=== PATIENT | female | born 1990 | race Caucasian/White ===

== ENCOUNTER 2019-08-31 06:07 | Inpatient (IN) ==
[2019-08-31] MEDS ORDERED: ONDANSETRON 4 MG/2 ML VIAL IV PRN (06:18)
[2019-08-31] MEDS ORDERED: BUTORPHANOL 2 MG/ML VIAL IV PRN (06:18)
[2019-08-31] MEDS ORDERED: MEPERIDINE 50 MG/1 ML VIAL IV PRN (06:18)
[2019-08-31] MEDS ORDERED: LACTATED RINGERS 1,000 ML IV SCH (06:30)
[2019-08-31 06:43] LABS: Basophils % 0.3 % (0.0-0.8); Eosinophils # 0.1 10*3/uL (0.0-0.87); Eosinophils % 0.6 % (0.00-10.9); Hematocrit 35.6 VOL% (35.7-47.0); Hemoglobin 11.9 GM/DL (12.0-16.0); Immature Granulocytes % 1.3 %; Immature Granulocytes Absolute 0.15 #; Lymphocytes % 25.7 % (21.3-54.2); Mean Corpuscular HGB Conc 33.4 GM/DL (32-36); Mean Corpuscular Volume 96.2 FL (87-102); Mean Platelet Volume 12.3 FL (9.6-12.0); Monocytes % 8.2 % (1.7-12.7); Neutrophils % 63.9 % (38.7-73.9); Platelet Count 186 T/CUMM (130-400); Red Cell Distribution Width 13.1 % (9.3-17.3); White Blood Count 11.6 T/CUMM (4-12)
[2019-08-31 07:02] LABS: Alanine Aminotransferase 12 U/L (13-56); Albumin 2.6 G/DL (3.4-5.0); Alkaline Phosphatase 130 U/L (45-117); Aspartate Amino Transferase 14 U/L (0-37); Bilirubin,Total < 0.39 MG/DL (0.2-1.0); Blood Urea Nitrogen 4 MG/DL (7-18); Calcium 9.3 MG/DL (8.5-10.1); Estimated Glom Filtration Rate 139 ML/MIN; Glucose 94 MG/DL (74-106); Osmolality,Calculated 271.7 MOS/KG (273-304); Total Protein 6.9 G/DL (6.4-8.3)
[2019-08-31] MEDS: OXYTOCIN/LR 20 UNIT/1,000 ML BAG IV SCH ×2 (07:05→16:59)
[2019-08-31] MEDS ORDERED: LACTATED RINGERS 1,000 ML IV ONE (08:39)
[2019-08-31] MEDS ORDERED: FAMOTIDINE 20 MG/2 ML VIAL IV ONE (08:39)
[2019-08-31] MEDS ORDERED: NALOXONE 0.4 MG/ML VIAL IV PRN (08:39)
[2019-08-31] MEDS ORDERED: diphenhydrAMINE 50 MG/1 ML VIAL IV PRN ×2 (08:39)
[2019-08-31] MEDS ORDERED: ePHEDrine 50 MG/ML AMP IV PRN (08:39)
[2019-08-31] MEDS ORDERED: PROMETHAZINE 25 MG/1 ML VIAL IM ONE (08:39)
[2019-08-31] MEDS ORDERED: hydrOXYzine HCL 25 MG/1 ML VIAL IM PRN (08:39)
[2019-08-31] MEDS ORDERED: CITRIC ACID/SODIUM CITRATE 30 ML UDCUP PO ONE (08:39)
[2019-08-31] MEDS ORDERED: fentaNYL 2 MCG/ROPIV 0.2% EPID 100 ML EPIDURAL SCH (09:00)
[2019-08-31 12:04] LABS: Apearance,Urine CLEAR (Clear); Bacteria,Urine Occasional /HPF (Few); Bilirubin,Urine Negative (Negative); Blood, Urine Negative (Negative); Glucose,Urine (UA) Negative (Negative); Ketones,Urine Negative (Negative); Mucus,Urine Occasional /LPF (Occasional); Nitrite,Urine Negative (Negative); Protein,Urine Negative; Urine Color Colorless (Yellow); Urine Specific Gravity 1.004 (1.001-1.035); Urine Urobilinogen < 2.0 EU/DL (0.2-1.0); WBC,Urine <1 /HPF (0-6)
[2019-08-31 14:39] LABS: Cord Venous Blood HCO3 21.4 MMOL/L; Cord Venous Blood PCO2 44.5 MMHG; Cord Venous Blood PO2 23.9
[2019-08-31] MEDS ORDERED: RHO(D) IMMUNE GLOBULIN 300 MCG SYRINGE IM ONE (17:30)
[2019-08-31] MEDS ORDERED: ACETAMINOPHEN 325 MG TABLET PO PRN (17:30)
[2019-08-31] MEDS ORDERED: BISACODYL 10 MG SUPP RECTAL PRN (17:30)
[2019-08-31] MEDS ORDERED: DIPH/TET/ACEL PERT BOOSTER VACCINE 0.5 ML VIAL IM ONE (17:30)
[2019-08-31] MEDS ORDERED: OXYTOCIN/LR 20 UNIT/1,000 ML BAG IV ONE (17:30)
[2019-08-31] MEDS ORDERED: LANOLIN 50% CREAM 0.3 OZ TUBE TOP PRN (17:30)
[2019-08-31] MEDS ORDERED: HYDROCORTISONE 2.5% RECTAL CREAM 30 GM TUBE TOP PRN (17:30)
[2019-08-31] MEDS ORDERED: BENZOCAINE 20%/MENTHOL 0.5% SPRAY 56 GM CAN TOP PRN (17:30)
[2019-08-31] MEDS ORDERED: WITCH HAZEL PADS 100/JAR TOP PRN (17:30)
[2019-08-31] MEDS ORDERED: MEASLES/MUMPS/RUBELLA VACCINE 0.5 ML VIAL SUBCUT ONE (17:30)
[2019-08-31] MEDS: IBUPROFEN 800 MG TABLET PO PRN (18:02)
[2019-08-31] MEDS: oxyCODONE/ACETAMINOPHEN 5-325 MG TABLET PO PRN (18:03)
[2019-08-31] MEDS: DOCUSATE SODIUM 100 MG CAPSULE PO SCH (21:57)
[2019-09-01] MEDS: IBUPROFEN 800 MG TABLET PO PRN ×4 (00:23→21:26)
[2019-09-01] MEDS: oxyCODONE/ACETAMINOPHEN 5-325 MG TABLET PO PRN ×3 (00:24→15:50)
[2019-09-01 06:10] LABS: Basophils # 0.1 10*3/uL (0.0-0.2); Basophils % 0.3 % (0.0-0.8); Eosinophils # 0.2 10*3/uL (0.0-0.87); Eosinophils % 1.6 % (0.00-10.9); Hematocrit 32.8 VOL% (35.7-47.0); Hemoglobin 10.9 GM/DL (12.0-16.0); Immature Granulocytes % 1.2 %; Immature Granulocytes Absolute 0.18 #; Lymphocytes # 2.9 10*3/uL (1.4-4.0); Lymphocytes % 19.4 % (21.3-54.2); Mean Corpuscular HGB Conc 33.2 GM/DL (32-36); Mean Corpuscular Volume 97.6 FL (87-102); Mean Platelet Volume 12.2 FL (9.6-12.0); Monocytes % 8.9 % (1.7-12.7); Neutrophils % 68.6 % (38.7-73.9); Platelet Count 161 T/CUMM (130-400); Red Blood Count 3.36 MC/CUMM (3.8-5.5); Red Cell Distribution Width 13.2 % (9.3-17.3); White Blood Count 14.8 T/CUMM (4-12)
[2019-09-01] MEDS: DOCUSATE SODIUM 100 MG CAPSULE PO SCH ×2 (07:35→21:26)
[2019-09-02] MEDS: oxyCODONE/ACETAMINOPHEN 5-325 MG TABLET PO PRN ×2 (00:39→08:12)
[2019-09-02] MEDS ORDERED: INFLUENZA VIRUS VACCINE 0.5 ML SYRINGE IM ONE ×2 (07:00→10:54)
[2019-09-02] MEDS: DOCUSATE SODIUM 100 MG CAPSULE PO SCH (08:12)
[2019-09-02 16:25] VITALS: BP 93/55
== END 2019-09-02 17:00 | disposition home or self-care (01) | DRG 560 ==
LOC: N.LDOUT 06:07 → N.LD 06:10 → N.OB 17:00
PROVIDERS: ADMIT Obstetrics & Gynecology; ATTEND Obstetrics & Gynecology